=== PATIENT | female | born 1990 | race Two or more races ===

== ENCOUNTER 2024-12-07 01:48 | Emergency (ER) | payer MEDICAID, OTHER ==
[~2024-12-07] VITALS: Ht 152.4 cm; Wt 91.9 kg
[2024-12-07 02:32] LABS: Basophils # (auto) 0 10 ^3/uL (0-0.2); Basophils % (auto) 0.3 % (0.0-2.0); Eosinophils # (auto) 0 10 ^3/uL (0-0.8); Eosinophils % (auto) 0.5 % (0.0-7.0); Hematocrit 38.8 % (36.0-46.0); Hemoglobin 12.9 g/dL (12.2-16.2); Lymphocytes # (auto) 0.5 10 ^3/uL (0.4-5.4); Lymphocytes % (auto) 5.7 % (10.0-50.0); Mean Corpuscular Hemoglobin 27.5 pg (28.0-32.0); Mean Corpuscular Hgb Conc. 33.2 g/dL (32.0-36.0); Mean Corpuscular Volume 82.9 fL (80.0-100.0); Monocytes # (auto) 0.1 10 ^3/uL (0-1.3); Neutrophils # (auto) 8.2 10 ^3/uL (1.6-8.6); Neutrophils % (auto) 92.5 % (37.0-80.0); Platelet Count (auto) 261 10^3/uL (140-450); Red Blood Cells 4.68 10^6/uL (4.0-5.20); Red Cell Distribution Width 14.3 % (11.8-14.3); White Blood Cell 8.9 10^3/uL (4.4-10.8)
[2024-12-07 02:42] LABS: Urine Bacteria MOD /hpf (None Seen); Urine Blood 2+ /uL (Negative); Urine Clarity Ex.Turbid (Clear); Urine Color Dark-Yellow (Yellow); Urine Protein, UAD 1+ (Negative); Urine Specific Gravity 1.014 (1.001-1.035); Urine Squamous Epithelial Cell None Seen /hpf (<5); Urine Urobilinogen 2 mg/dL (Negative); Urine WBC 2657 /HPF (0-5); Urine WBC Clumps PRESENT /hpf (None Seen); Urine pH 6.5 (5.0-9.0)
[2024-12-07 02:58] LABS: Alanine Aminotransferase 13 U/L (7-40); Albumin 4.5 g/dL (3.2-4.8); Alkaline Phosphatase 96 U/L (46-116); Anion Gap 10 (5-15); BUN/Creatinine Ratio 19.7 (10.0-20.0); Blood Urea Nitrogen 14 mg/dL (9-23); Calcium 8.9 mg/dL (8.7-10.4); Carbon Dioxide 24 mmol/L (20-31); Chloride 106 mmol/L (98-107); Sodium 140 mmol/L (136-145)
[2024-12-07 02:59] LABS: Bilirubin, Total 0.4 mg/dL (0.2-1.0)
[2024-12-07 03:03] LABS: Aspartate Aminotransferase 12 U/L (13-40); Glucose 141 mg/dL (74-106); Potassium 3.5 mmol/L (3.5-5.1)
--- NOTE | 2024-12-07 03:13 | ED.PDOC ---
History of Present Illness HPI Comments 34 y/o obese F, with a history of and cholecystectomy, presents with c/o right-flank and diffused abdominal pain, with associated shortness of breath, dysuria, and constipation for 1 week. Patient is a Estonian speaker. She endorses on pain being a 10/10 in severity and having no relief or improvement with ansh-soe-qsrngiw ibuprofen or Uristat medication use. Mentions no recent travel, substance use, spoiled food intake, injuries, fall, or further significant medical history. Denies any hematuria, nausea, vomiting, fever, chills, or additional associated symptoms or modifiers. Chief Complaint: Flank Pain Time Seen by MD: 02:00 Reviewed Notes: Nurses Notes, Medications, Allergies Allergies: Coded Allergies: NO KNOWN ALLERGIES (Unverified , 12/07/24) Home Meds Active Scripts Cephalexin (KEFLEX CAPSULE) 250 Mg Cp, 500 MG PO BID for 10 Days, #20 CAP Prov:JOSÉ MANUEL SINGER MD 12/07/24 Acetaminophen (Acetaminophen) 500 Mg Tab, 500 MG PO QIDPRN for 5 Days, #20 TAB Prov:JOSÉ MANUEL SINGER MD 12/07/24 Information Source: Patient Mode of Arrival: Ambulatory Severity: Moderate Timing: Weeks Duration: Since onset Prehospital treatment: Other (see HPI) Review of Systems: REVIEW OF SYSTEMS: No fever, no chills, or fatigue HEENT: No sore throat, no earache, no congestion, no neck pain. Cardiac: No chest pain. No palpitations. Lungs: shortness of breath, no cough. GI: Diffuse abdominal pain. Constipation. No nausea, no vomiting, no diarrhea : Right flank pain. dysuria, frequency, or urgency. No hematuria. Musculoskeletal: No joint pain , no joint swelling, no extremity edema. Skin: No rash, no itching. Neuro: No headache, no dizziness, no weakness Vital Signs Vital Signs Date Time Temp Pulse Resp B/P (MAP) Pulse Ox O2 Delivery O2 Flow Rate FiO2 12/07/24 04:47 16 98 Room Air* 0 21 12/07/24 03:21 99.5 120 128/63 (84) 99.5 Physical Exam General: Awake, alert and oriented. No acute distress. Skin: Skin in warm, dry and intact. Appropriate color for ethnicity. HEENT: The head is normocephalic and atraumatic. Conjunctivae are clear without exudates or hemorrhage. Sclera is non-icteric. EOM are intact. No signs of nystagmus. Eyelids are normal in appearance without swelling or lesions. Oral mucosa is pink and moist Neck: The neck is supple with normal range of motion. No JVD. Cardiac: Heart rate and rhythm are normal. No murmurs, gallops, or rubs are auscultated. Respiratory: No signs of respiratory distress. Lung sounds are clear in all lobes bilaterally without rales, rhonchi, or wheezes. Abdominal: Generalized abdominal tenderness. Abdomen is soft, without distention. Bowel sounds are present and normoactive in all four quadrants. Musculoskeletal: No CVA tenderness; right flank tenderness Extremities: Upper and lower extremities are atraumatic in appearance without deformity or edema. Neurological: The patient is awake, alert and oriented to person, place, and time with normal speech. Speech is clear. There is no facial asymmetry. Psychiatric: Appropriate mood and affect. Good judgement and insight. 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 Was a procedure done?: No Differential Dx Considerations may include: Differential diagnoses considered include: Abdominal aortic aneurysm, NV, esophageal rupture, intestinal obstruction, mesenteric ischemia, perforated viscus or solid organ rupture, CHF with hepatomegaly, pneumonia, abscess, appendicitis, biliary disease, diverticulitis, gastritis, gastroenteritis, hepatitis, hernia, inflammatory bowel disease, pancreatitis, peptic ulcer disease, urinary tract infection, ureteral colic, constipation, GERD, irritable syndrome, abdominal wall pain, nonspecific abdominal pain, herpes zoster, Nephrolithiasis . Also ruptured ectopic , ovarian torsion/cyst, tubo- ovarian abscess, PID, endometriosis, mittelschmerz. X-Ray, Labs, Meds, VS Vital Signs Date Time Temp Pulse Resp B/P (MAP) Pulse Ox O2 Delivery O2 Flow Rate FiO2 12/07/24 04:47 16 98 Room Air* 0 21 12/07/24 03:21 99.5 120 20 128/63 (84) 95 99.5 12/07/24 02:00 99.3 125 18 153/74 (100) 97 99.3 Lab Test 12/07/24 02:21 12/07/24 02:00 Range/Units White Blood Count 8.9 4.4-10.8 10^3/uL Red Blood Count 4.68 4.0-5.20 10^6/uL Hemoglobin 12.9 12.2-16.2 g/dL Hematocrit 38.8 36.0-46.0 % Mean Corpuscular Volume 82.9 80.0-100.0 fL Mean Corpuscular Hemoglobin 27.5 L 28.0-32.0 pg Mean Corpuscular Hemoglobin Concent 33.2 32.0-36.0 g/dL Red Cell Distribution Width 14.3 11.8-14.3 % Platelet Count 261 140-450 10^3/uL Mean Platelet Volume 8.6 6.9-10.8 fL Neutrophils (%) (Auto) 92.5 H 37.0-80.0 % Lymphocytes (%) (Auto) 5.7 L 10.0-50.0 % Monocytes (%) (Auto) 1.0 0.0-12.0 % Eosinophils (%) (Auto) 0.5 0.0-7.0 % Basophils (%) (Auto) 0.3 0.0-2.0 % Neutrophils # (Auto) 8.2 1.6-8.6 10 ^3/uL Lymphocytes # (Auto) 0.5 0.4-5.4 10 ^3/uL Monocytes # (Auto) 0.1 0-1.3 10 ^3/uL Eosinophils # (Auto) 0 0-0.8 10 ^3/uL Basophils # (Auto) 0 0-0.2 10 ^3/uL Nucleated Red Blood Cells 0.0 % Sodium Level 140 136-145 mmol/L Potassium Level 3.5 3.5-5.1 mmol/L Chloride Level 106 98-107 mmol/L Carbon Dioxide Level 24 20-31 mmol/L Anion Gap 10 5-15 Blood Urea Nitrogen 14 9-23 mg/dL Creatinine 0.71 0.550-1.02 mg/dL Glomerular Filtration Rate Calc 116 >90 mL/min BUN/Creatinine Ratio 19.7 10.0-20.0 Serum Glucose 141 H 74-106 mg/dL Calcium Level 8.9 8.7-10.4 mg/dL Total Bilirubin 0.4 0.2-1.0 mg/dL Aspartate Amino Transferase (AST) 12 L 13-40 U/L Alanine Aminotransferase (ALT) 13 7-40 U/L Alkaline Phosphatase 96 46-116 U/L Total Protein 7.0 5.7-8.2 g/dL Albumin 4.5 3.2-4.8 g/dL Urine Color Dark-yellow Yellow Urine Clarity Ex.turbid Clear Urine pH 6.5 5.0-9.0 Urine Specific [place] 1.014 1.001-1.035 Urine Protein 1+ H Negative Urine Ketones Negative Negative Urine Blood 2+ H Negative /uL Urine Nitrite 2+ H Negative Urine Bilirubin 1+ H Negative Urine Urobilinogen 2 H Negative mg/dL Urine Leukocyte Esterase 3+ Negative /uL Urine RBC 17 0 - 4 /hpf Urine WBC Clumps Present None Seen /hpf Urine Microscopic WBC 2657 H 0-5 /HPF Urine Squamous Epithelial Cells None seen <5 /hpf Urine Bacteria Mod H None Seen /hpf Urine Glucose Normal Normal mg/dL Urine Test Negative Negative Chlamydia trachomatis (KD) Pending Neisseria gonorrhoeae (KD) Pending Current Medications Medications (Trade) Dose Ordered Sig/Viviane Route Start Time Stop Time Status Last Admin Sodium Chloride 1,000 ml @ 1,000 mls/hr Q1H ONCE IV 12/07/24 02:15 12/07/24 03:14 DC 12/07/24 04:15 Ketorolac Tromethamine (Toradol Injection) 30 mg ONCE ONCE IV 12/07/24 02:15 12/07/24 02:16 DC 12/07/24 04:16 Acetaminophen (Tylenol Tablet Or Capsule) 1,000 mg ONCE ONCE PO 12/07/24 02:15 12/07/24 02:16 DC 12/07/24 03:50 Ceftriaxone Sodium 50 ml @ 100 mls/hr ONCE ONCE IV 12/07/24 03:30 12/07/24 03:59 DC 12/07/24 03:50 Time of 1ST Reevaluation: 02:30 Reevaluation 1ST: Unchanged Patient Education/Counseling: Need For Follow Up Family Education/Counseling: No Family Present Departure 1 Departure Time of Disposition: 03:19 Impression: Primary Impression: Flank pain Additional Impression: UTI (urinary tract infection) Disposition: 01 HOME / SELF CARE / HOMELESS Condition: Stable Additional Instructions: INSTRUCCIONES DE OLIVIA DE Urgencias Instrucciones: Sheba atentamente todas las instrucciones proporcionadas en dale paquete. Aunque le hayan dado el olivia del Departamento de Emergencias, esto no significa que tenga un "certificado de buena jabari". [] Hoy no se clarke realizado juana�n diagn�stico definitivo para jennifer s�ntomas. Es posible que est�s en proceso de desarrollar eagle enfermedad grave. Es por eso que debe regresar al servicio de urgencias sin falta si presenta alg�n s�ntoma nuevo o que empeora (especialmente si jennifer s�ntomas incluyen dolor en el pecho, dificultad para respirar, dolor abdominal, fiebre, dolor de michele, confusi�n, dificultad para valarie o caminar). Tambi�n es muy importante que consulte a un m�dico de atenci�n primaria dentro de los pr�ximos 3 a 5 d�as para realizar un seguimiento. Si no puede conseguir eagle lisa, regrese al servicio de urgencias para eagle nueva evaluaci�n. Educaci�n para el paciente: Infecciones de las v�as urinarias en adultos (Conceptos B�sicos) ? Ri�ones � Son dos �rganos con forma de frijol que filtran la tod para producir orina. ? Vejiga � Es un �rgano con forma de globo que almacena la orina. ? Ur�teres � Son dos tubos que llevan la orina desde los ri�ones a la vejiga. ? Uretra � Es el tubo que lleva la orina desde la vejiga al exterior del cuerpo. Las infecciones en la vejiga son m�s comunes que las infecciones en los ri�ones. Se producen cuando entran bacterias en la uretra y se desplazan hacia arriba, hasta la vejiga. El t�rmino m�dico para referirse a eagle infecci�n en la vejiga es "cistitis". La mayor�a de las veces, cuando las personas hablan de eagle infecci�n de las v�as urinarias, se refieren a eagle infecci�n de la vejiga. ? Las infecciones de ri��n ocurren cuando las bacterias se desplazan incluso m�s arriba, hasta los ri�ones. El t�rmino m�dico para referirse a eagle infecci�n en los ri�ones es ? Tanto las infecciones en la vejiga shruthi en los ri�ones son m�s comunes en las personas de sexo femenino que en las de sexo masculino. El riesgo de infecciones de las v�as urinarias tambi�n es mayor en personas que tienen un cat�ter urinario. Un cat�ter es un tubo lepe y flexible que drena orina de la vejiga. Podr�a usarse en personas hospitalizadas que no pueden orinar de manera normal. �Cu�les son los s�ntomas de aegle infecci�n en la vejiga? Los s�ntomas son, entre otros: �Cu�les son los s�ntomas de eagle infecci�n en el ri��n? Los s�ntomas de eagle infecci�n en el ri��n pueden incluir los mismos s�ntomas urinarios que se presentan con eagle infecci�n en la vejiga. Adem�s, las infecciones en el ri��n pueden causar: �Es necesario que me realice pruebas? Saravanan vez. Si piensa que podr�a tener eagle infecci�n de las v�as urinarias, llame a david m�dico o enfermero. En ocasiones, puede determinar si usted tiene eagle infecci�n de las v�as urinarias con solo conocer jennifer s�ntomas. David m�dico o enfermero podr�a hacerle eagle simple prueba de orina en el consultorio. Tambi�n es posible que le leonor eagle prueba de orina m�s compleja para detectar bacterias. "pielonefritis". Es m�s grave que eagle infecci�n de la vejiga, y puede provocar otros problemas graves si no se trata adecuadamente. ? Dolor o ardor al orinar ? Necesidad de orinar con frecuencia ? Necesidad de orinar en forma repentina o urgente ? Tod en la orina ? Fiebre ? Dolor de espalda ? N�useas o v�mitos �C�mo se tratan las infecciones de las v�as urinarias? La mayor�a de las infecciones de las v�as urinarias se tratan con p�ldoras de antibi�ticos. Act�an matando los g�rmenes que causan la infecci�n. Jennifer s�ntomas deber�an mejorar al d�a siguiente de estar tomando antibi�ticos, padma debe terminar todas las p�ldoras. De lo contrario, la infecci�n podr�a regresar. Si es necesario, tambi�n puede huey eagle medicina para anestesiar david vejiga. Esta medicina disminuye el dolor que causan las infecciones de las v�as urinarias. Tambi�n reduce el deseo de orinar. �Qu� pasa si sufro infecciones frecuentes en la vejiga? Oc, consulte a david m�dico o enfermero para verificar si realmente se trata de infecciones en la vejiga. Los s�ntomas de eagle infecci�n en la vejiga pueden ser causados por otras cosas. El m�dico o enfermero querr� valarie si esos problemas pueden estar causando jennifer s�ntomas. Si david m�dico confirma que usted tiene infecciones frecuentes, hay cosas que puede hacer para evitarlas. Por ejemplo: Otras cosas que podr�an ser �tiles son: Si tiene eagle infecci�n en la vejiga, probablemente tenga que huey antibi�ticos yosi 3 a 7 d�as. ? Si tiene eagle infecci�n en los ri�ones, probablemente necesite huey antibi�ticos m�s tiempo. Algunas personas deben tomarlos yosi 10 d�as. Si tiene eagle infecci�n en los ri�ones, tambi�n es posible que necesite recibir tratamiento en el hospital. ? ? Beber m�s l�quido � [place] puede ayudar a prevenir las infecciones en la vejiga. Estr�moustapha vaginal � Si ya clarke tenido la menopausia, el m�dico podr�a sugerir dale tratamiento. El estr�moustapha vaginal viene en forma de crema o anillo flexible que se coloca en la vagina. Puede ayudar a prevenir las infecciones en la vejiga. ? Evitar los espermicidas (cremas o geles que nathan el esperma) � Los espermicidas son un m�todo de planificaci�n familiar. Al parecer, aumentan el riesgo de tener infecciones en la vejiga para algunas personas de sexo femenino, especialmente en aquellas que usan un ? Si tiene muchas infecciones en la vejiga y los m�todos anteriores no lora dado resultado, hable con david m�dico sobre qu� m�s puede hacer para prevenir las infecciones. Huey un antibi�yury todos los d�as o despu�s de tener relaciones sexuales puede ayudar a prevenir infecciones en la vejiga. Sin embargo, el uso de antibi�ticos a carter plazo tiene desventajas, por lo que generalmente los m�dicos oc sugieren otros m�todos, shruthi por ejemplo: �Pueden otros productos prevenir las infecciones en la vejiga? Algunas personas se preguntan sobre otros productos "naturales" que dicen ayudar a prevenir las infecciones en la vejiga, shruthi p�ldoras de probi�ticos, vitamina Cy D- manosa. No se cuenta con eagle prueba firme de que estos productos den resultado. Sin embargo, tampoco hay pruebas claras de que linda perjudiciales. Si tiene preguntas sobre estos u otros productos, hable con david m�dico o enfermero. M�s informaci�n sobre dale marnie Educaci�n para el paciente: Infecci�n de las v�as urinarias � Instrucciones para el olivia (Conceptos B�sicos) Educaci�n para el paciente: Infecciones de las v�as urinarias en el embarazo (Conceptos B�sicos) Educaci�n para el paciente: Tod en la orina (hematuria) en adultos (Conceptos B�sicos) Educaci�n para el paciente: Bacteriuria asintom�amauri (Conceptos B�sicos) Educaci�n para el paciente: Espasmo vesical (Conceptos B�sicos) Educaci�n para el paciente: Infecci�n por betalactamasa de espectro extendido (Conceptos B�sicos) diafragma. Si usa espermicidas y tiene muchas infecciones en la vejiga, podr�a ser conveniente que cambie a otro m�todo de planificaci�n familiar. Orinar despu�s de tener relaciones sexuales � Algunos m�dicos piensan que esto ayuda a expulsar los g�rmenes que pueden vicente ingresado a la vejiga yosi la relaci�n sexual. No hay evidencia de que esto funcione, padma tampoco puede hacer da�o. ? Metenamina (jayce comercial: Hiprex) � Es eagle p�ldora que se carolyne todos los d�as. Modifica la orina para dificultar el crecimiento de bacterias. Funciona sheila levin shannan shruthi los antibi�ticos para prevenir infecciones en la vejiga. ? Jugo de ar�ndanos u otros derivados del ar�ndano � Podr�an ayudar a prevenir o tratar las infecciones en la vejiga, padma los m�dicos no saben cu�l es la mejor dosis. e-Prescriptions Cephalexin (KEFLEX CAPSULE) 250 Mg Cp 500 MG PO BID for 10 Days, #20 CAP Prov: JOSÉ MANUEL SINGER MD 12/07/24 Acetaminophen (Acetaminophen) 500 Mg Tab 500 MG PO QIDPRN for 5 Days, #20 TAB Prov: JOSÉ MANUEL SINGER MD 12/07/24 Comments 34-year-old female with abdominal pain and urinary tract infection. Patient is well-appearing, nontoxic. Patient's symptoms improved during the ED observation. Vital signs stable. Dose of IV antibiotics given in the ED. Patient is felt stable for discharge home. Patient advised to follow up with primary care provider promptly and return to the emergency department with any new, worsening or concerning symptoms. I reviewed the following notes from the pt's past medical encounters: N/A The following tests were ordered, and results were reviewed by me: (See diagnostic results section) The following test were independently interpreted by me: N/A Additional information was gathered from interviewing the following independent historians: N/A I reviewed and agreed with the following test results read by other providers: N/A I discussed treatments and results with patient Decision regarding hospitalization or escalation of hospital level of care: Risks and benefits of admission for further treatment of patient's condition was considered however due to patient's stable condition patient will be discharged to follow up closely or return to care for worsening of condition or inability to follow up. Critical Care Note Critical Care Time?: No Stability Stability form required: No Heart Score Heart Score: Heart Score Response (Comments) Value History N/A 0 EKG N/A 0 Age N/A 0 Risk Factors N/A 0 Troponin N/A 0 Total 0 I personally scribed for JOSÉ MANUEL SINGER MD ([email or web address]) on 12/07/24 at 03:13. Electronically submitted by Schuyler Ward ([email or web address]). OJSÉ MANUEL SINGER MD December 07, 2024 03:13
[2024-12-07 03:21] VITALS: BP 128/63; PULSE 120; TEMP 99.5
[2024-12-07] MEDS ORDERED: CEPH250C PO (03:21)
[2024-12-07] MEDS ORDERED: ACET500T58 PO (03:21)
[2024-12-07] MEDS ORDERED: cefTRIAXone W LIDOCAINE 1 GM IM IM ONE (03:30)
[2024-12-07] MEDS: ACETAMINOPHEN 500 MG TAB or CAP PO ONE (03:50)
[2024-12-07] MEDS: cefTRIAXone 1GM/50ML D5W 50 ML IV ONE (03:50)
[2024-12-07] MEDS: SODIUM CHLORIDE 0.9% 1,000 ML IV ONE (04:15)
[2024-12-07] MEDS: KETOROLAC TROMETH 30 MG/ML 1ML VIAL IV ONE (04:16)
[2024-12-07 04:47] VITALS: RESP 16; O2SAT 98
[2024-12-08 23:06] LABS: Chlamydia Trachomatis, NAA Negative (Negative); Neisseria gonorrhoeae, NAA Negative (Negative)
== END 2024-12-07 05:32 | disposition home or self-care (01) ==
LOC: ER 01:48
DX: N39.0 Urinary tract infection, site not specified (principal); R10.84 Generalized abdominal pain; Z90.49 Acquired absence of other specified parts of digestive tract
CPT/HCPCS: 36415; 80053; 81001; 81025; 85025; 87086; 87491; 87591; 96365; 96375; 99284; J0696; J1885; 87088; 87186

== ENCOUNTER 2025-04-14 20:51 | Emergency (ER) | payer MEDICAID ==
[~2025-04-14 20:51] MED LIST: ACET500T58 PO; CEPH250C PO
[2025-04-14 20:54] VITALS: BP 128/61; RESP 18; TEMP 98.2
[2025-04-15] MEDS ORDERED: AMOX875T4 PO (00:08)
[2025-04-15] MEDS ORDERED: ACET500T58 PO (00:08)
--- NOTE | 2025-04-15 00:08 | ED.PDOC ---
Eye-HPI HPI Comments 35-year-old female presents to ER with complaints of sore throat x2 weeks. Patient reports that she has been experiencing sore throat pain x2 weeks. Reports that she last took Tylenol at 10:00 a.m. this morning without relief and rates her current sore throat pain a 05/07. Patient presents to ER afebrile, ambulatory, in no distress. Denies fever, cough, n/v, body aches, chills, night sweats or any further symptoms/complaints Chief Complaint: Sore Throat Time Seen by MD: 21:10 Primary Care Provider: UNKNOWN Reviewed Notes: Nurses Notes, Medications, Allergies Allergies: Coded Allergies: NO KNOWN ALLERGIES (Unverified , 12/07/24) Home Meds Active Scripts Acetaminophen (Acetaminophen) 500 Mg Tab, 500 MG PO Q4HPRN, #30 TAB 0 Refills Prov:OLMAN RUSSELL 04/15/25 Amoxicillin & Pot Clavulanate (Amoxicillin/Potassium Cla) 875 Mg Tab, 1 TAB PO BID for 10 Days, #20 TAB 0 Refills Prov:OLMAN RUSSELL 04/15/25 Cephalexin (KEFLEX CAPSULE) 250 Mg Cp, 500 MG PO BID for 10 Days, #20 CAP Prov:JOSÉ MANUEL SINGER MD 12/07/24 Acetaminophen (Acetaminophen) 500 Mg Tab, 500 MG PO QIDPRN for 5 Days, #20 TAB Prov:JOSÉ MANUEL SINGER MD 12/07/24 Information Source: Patient Mode of Arrival: Ambulatory Past Medical History PAST MEDICAL HISTORY: Denies Surgical History: Cholecystectomy, 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 Family History Family History: Unknown Social History Smoker: Non-Smoker Alcohol: Denies ETOH Use Drugs: Denies Drug Use Lives In: Home Constitutional: denies: chills, diaphoresis, fatigue, fever, malaise, sweats, weakness, others EENTM: reports: others (As stated in HPI) Respiratory: denies: cough, hemoptysis, orthopnea, SOB at rest, shortness of breath, SOB with excertion, stridor, wheezing, others Cardiovascular: denies: chest pain, dizzy spells, diaphoresis, Dyspnea on exertion, edema, irregular heart beat, left arm pain, lightheadedness, palpitations, PND, syncope, others Gastrointestinal: denies: abdomen distended, abdominal pain, blood streaked bowels, constipated, diarrhea, dysphagia, difficulty swallowing, hematemesis, melena, nausea, poor appetite, poor fluid intake, rectal bleeding, rectal pain, vomiting, others Genitourinary: denies: abnormal vagina bleeding, burning, dyspareunia, dysuria, flank pain, frequency, hematuria, incontinence, pain, , vagina discharge, urgency, others Neurological: denies: dizziness, fainting, headache, left sided numbness, left sided weakness, numbness, paresthesia, pre-existing deficit, right sided numbne ss, right sided weakness, seizure, speech problems, tingling, tremors, weakness, others Musculoskeletal: denies: back pain, gout, joint pain, joint swelling, muscle pain, muscle stiffness, neck pain, others Integumetry: denies: bruises, change in color, change in hair/nails, dryness, laceration, lesions, lumps, rash, wounds, others Allergic/Immunocompromised: denies: Difficulty Healing, Frequent Infections, Hives, Itching, others Hematologic/Lymphatic: denies: anemia, blood clots, easy bleeding, easy bruising, swollen glands, others Endocrine: denies: excessive hunger, excessive sweating, excessive thirst, excessive urination, flushing, intolerance to cold, intolerance to heat, unexplained weight gain, unexplained weight loss, others Psychiatric: denies: anxiety, bipolar disorder, depression, hopeless, panic disorder, schizophrenia, sleepless, suicidal, others Physical Exam General Appearance: No Apparent Distress HEENT: PERRL/EOMI, Pharyngeal Erythema (Mild tonsillar swelling/erythema noted bilaterally without exudates. Uvula-normal), TMs Normal Neck: Full Range of Motion, Non-Tender, Normal Respiratory: Chest Non-Tender, Lungs Clear, No Accessory Muscle Use, No Respiratory Distress, Normal Breath Sounds Cardiovascular: No Murmur, No Gallop, Regular Rate/Rhythm Breast Exam: Deferred Gastrointestinal: NOT DONE Genitalia: Deferred Pelvic: Deferred Rectal: Deferred Extremities: Normal capillary refill, Normal range of motion Neurologic: Alert, No Motor Deficits, Normal Affect, Normal Mood, No Sensory Deficits Cerebellar Function: Normal Reflexes: Normal Skin: Dry, Normal Color, Warm Peripheral Pulses: 2+ Radial (R), 2+ Radial (L), 2+ Brachial (R), 2+ Brachial (L) Lymphatic: No Adenopathy Was a procedure done? Was a procedure done?: No Sedation Sedation?: No EENT DIFF Eye: N/A Sore Throat: Epiglottitis, Mononeucleosis, Peritonsillar Abscess, URI X-Ray, Labs, Meds, VS Vital Signs Date Time Temp Pulse Resp B/P (MAP) Pulse Ox O2 Delivery O2 Flow Rate FiO2 04/14/25 20:54 98.2 91 18 128/61 94 98.2 Tylenol 650 mg p.o. ordered Patient tolerating p.o. intake well and well appearing/in no distress prior to discharge Advised to drink plenty of fluids Advised to follow up with PCP in 1-2 days Patient verbalized understanding and agreeable with current plan of care Advised to return to ER immediately if symptoms worsen Time of 1ST Reevaluation: 23:40 Reevaluation 1ST: N/A Patient Education/Counseling: Diagnosis, Treatment, Prognosis, Need For Follow Up Family Education/Counseling: Diagnosis, Treatment, Prognosis, Need For Follow Up SEPSIS Sepsis Screen Date sepsis recognized/suspect: Apr 14, 2025 Time Sepsis recognized/suspect: 2053 Recent Procedure: No On Antibiotic Therapy: No Respiratory Rate >20: No Heart Rate >90: Yes Temp<36 C (96.8 F) or >38.3 C: No SBP <90 or MAP <65 mmHG: No New Acute Mental Status Change: No Is the patient on CPAP, BIPAP,: No Physician Orders Acetaminophen Tablet (Tylenol Tablet) (04/15/25 00:15) Vital Signs Date Time Temp Pulse Resp B/P (MAP) Pulse Ox O2 Delivery O2 Flow Rate FiO2 04/14/25 20:54 98.2 91 18 128/61 94 98.2 Departure 1 Departure Time of Disposition: 00:02 Impression: Primary Impression: Acute tonsillitis Qualified Codes: J03.90 - Acute tonsillitis, unspecified Disposition: HOME / SELF CARE / HOMELESS Condition: Stable e-Prescriptions Acetaminophen (Acetaminophen) 500 Mg Tab 500 MG PO Q4HPRN, #30 TAB 0 Refills Prov: OLMAN RUSSELL 04/15/25 Amoxicillin & Pot Clavulanate (Amoxicillin/Potassium Cla) 875 Mg Tab 1 TAB PO BID for 10 Days, #20 TAB 0 Refills Prov: OLMAN RUSSELL 04/15/25 Discharged With: Self Critical Care Note Critical Care Time?: No Stability Stability form required: No Heart Score Heart Score: Heart Score Response (Comments) Value History N/A 0 EKG N/A 0 Age N/A 0 Risk Factors N/A 0 Troponin N/A 0 Total 0 OLMAN RUSSELL Apr 15, 2025 00:08
[2025-04-15 00:12] VITALS: PULSE 96; O2SAT 97
[2025-04-15] MEDS: ACETAMINOPHEN 325 MG TAB PO ONE (00:19)
== END 2025-04-15 00:20 | disposition home or self-care (01) ==
LOC: ER 20:51
DX: J03.90 Acute tonsillitis, unspecified (principal); Z90.49 Acquired absence of other specified parts of digestive tract